=== PATIENT | male | born 1945 | race Caucasian/White ===

== ENCOUNTER 2018-11-19 06:23 | Day surgery (SDC) | payer MEDICARE, OTHER ==
[~2018-11-19 06:23] MED LIST: KETOROLAC TROMETHAMINE 0.45% 4 DROP/0.4 ML DROPERETTE OS PRN
[2018-11-19] MEDS: TROPICAMIDE 1% OPH SOLN 3 ML OS PRN ×3 (06:47→07:08)
[2018-11-19] MEDS: CYCLOPENTOLATE 0.2%/PHENYLEPHRINE 1% OPH SOLN 2 ML OS PRN ×3 (06:47→07:08)
[2018-11-19] MEDS: BESIFLOXACIN HCL 0.6% OPH SUSP 5 ML BOTTLE OS PRN ×4 (06:47→07:48)
[2018-11-19] MEDS: TETRACAINE HCL 0.5% OPH SOLN 4 ML OS PRN ×4 (06:48→07:30)
[2018-11-19] MEDS ORDERED: MIDAZOLAM 2 MG/2 ML INJ ONE (07:17)
[2018-11-19] MEDS: EPINEPHRINE INJ/PF 1 MG/1 ML AMPULE ONE ×2 (07:39)
[2018-11-19] MEDS: LIDOCAINE 1%/PHENYLEPHRINE 1.5% 1 ML VIAL ONE ×2 (07:39)
[2018-11-19] MEDS: CHONDR SU A NA/HYALUR INTRAOC KIT (SURGICARE) ONE ×2 (07:39)
[2018-11-19] MEDS: DORZOLAMIDE HCL 2%/TIMOLOL MALEAT 0.5% OPH SOLN 10 ML OS PRN ×2 (07:48)
--- NOTE | 2018-11-19 19:35 | [facility] OPERATIVE REPORT E ---
[facility] Operative Report NAME: MICHAEL LEAL AGE: 73Y DATE OF SURGERY: 11/19/2018 ROOM: PREOPERATIVE DIAGNOSIS: CATARACT, LEFT EYE. POSTOPERATIVE DIAGNOSIS: CATARACT, LEFT EYE. OPERATION: Cataract extraction with insertion of an IOL of the left eye. SURGEON: ALEJANDRO MAYEN M.D. ANESTHESIA: Topical. PROCEDURE: After obtaining appropriate consent, the patient's left eye was prepped and draped in sterile fashion as well as the surgeon in a sterile manner and cataract surgery was started. First a paracentesis blade was used to make a side-port incision. Viscoelastic was used to inflate the anterior chamber. Next a 2.4 mm incision was made with a 2.4 mm blade, clear corneal temporally. A continuous capsulorrhexis was made using a cystotome and Utrata forceps. Following this hydrodissection was carried out to make the lens fully loose and mobile and it was rotated 90 degrees. Following this, a tubtga-rog-wxomqoq technique was used to phacoemulsify the lens with a CDE of 4.35. The remaining cortex was removed with irrigation/aspiration. Provisc was instilled into the capsular bag to inflate the bag. A SN60WF, 17.0 diopter lens was placed. The remaining viscoelastic material was removed with irrigation/aspiration. Following this, the incision was found to be watertight. Besivance was instilled into the eye and a protective shield was placed over the eye. The patient returned to the postoperative recovery in stable condition. DICTATING PHYSICIAN: ALEJANDRO MAYEN M.D. [id number] PHY#: [id number] ID: [id number] JOB#: [id number] ACCT: [id number] cc:ALEJANDRO MAYEN M.D. >
--- NOTE | 2018-11-19 19:40 | [facility] DISCHARGE SUMMARY E ---
[facility] Discharge Summary NAME: MICHAEL LEAL AGE: 73Y ADMITTED: 11/19/2018 DISCHARGED: This is a 73-year-old male who underwent cataract extraction of the left eye. DIAGNOSIS: CATARACT LEFT EYE. He underwent surgery because he was having difficulty driving at night secondary to glare from headlights. He should be on a regular diet. No bending at the waist and no heavy lifting. He should use his Besivance, Ilevro, and Pred Forte at 3:00 p.m. and 8:00 p.m. and sleep with a rigid shield. I will see him for his 1-day postop tomorrow. DICTATING PHYSICIAN: ALEJANDRO MAYEN M.D. [id number] PHY#: [id number] ID: [id number] JOB#: [id number] ACCT: [id number] cc:ALEJANDRO MAYEN M.D. >
== END 2018-11-19 08:25 | disposition home or self-care (01) ==
LOC: SC 06:23
PROVIDERS: ATTEND Internal Medicine
DX: H25.13 Age-related nuclear cataract, bilateral (principal); H33.321 Round hole, right eye; I10 Essential (primary) hypertension; E78.00 Pure hypercholesterolemia, unspecified; M06.9 Rheumatoid arthritis, unspecified; N40.0 Benign prostatic hyperplasia without lower urinary tract symptoms; R01.1 Cardiac murmur, unspecified; Z87.891 Personal history of nicotine dependence; Z79.01 Long term (current) use of anticoagulants
CPT/HCPCS: 66984; 00142; V2632; J2250; J3490 ×2; A9270; J0171; J2370; 142

== ENCOUNTER 2018-12-10 08:53 | Day surgery (SDC) | payer MEDICARE, OTHER ==
[~2018-12-10 08:53] MED LIST changes: +KETOROLAC TROMETHAMINE 0.45% 4 DROP/0.4 ML DROPERETTE OD PRN; -KETOROLAC TROMETHAMINE 0.45% 4 DROP/0.4 ML DROPERETTE OS PRN
[2018-12-10] MEDS: TROPICAMIDE 1% OPH SOLN 3 ML OD PRN ×3 (09:20→09:49)
[2018-12-10] MEDS: CYCLOPENTOLATE 0.2%/PHENYLEPHRINE 1% OPH SOLN 2 ML OD PRN ×3 (09:20→09:49)
[2018-12-10] MEDS: BESIFLOXACIN HCL 0.6% OPH SUSP 5 ML BOTTLE OD PRN ×4 (09:21→10:18)
[2018-12-10] MEDS: TETRACAINE HCL 0.5% OPH SOLN 4 ML OD PRN ×3 (09:22→09:55)
[2018-12-10] MEDS: LIDOCAINE 1%/PHENYLEPHRINE 1.5% 1 ML VIAL ONE ×2 (10:08)
[2018-12-10] MEDS: EPINEPHRINE INJ/PF 1 MG/1 ML AMPULE ONE ×2 (10:08)
[2018-12-10] MEDS: CHONDR SU A NA/HYALUR INTRAOC KIT (SURGICARE) ONE ×2 (10:08)
[2018-12-10] MEDS: DORZOLAMIDE HCL 2%/TIMOLOL MALEAT 0.5% OPH SOLN 10 ML OD PRN ×2 (10:18)
[2018-12-10] MEDS ORDERED: MIDAZOLAM 2 MG/2 ML INJ ONE (10:42)
--- NOTE | 2018-12-10 17:35 | [facility] DISCHARGE SUMMARY E ---
[facility] Discharge Summary NAME: MICHAEL LEAL AGE: 73Y ADMITTED: 12/10/2018 DISCHARGED: 12/10/2018 HOSPITAL COURSE: This is a 73-year-old patient who underwent cataract extraction of the right eye. DIAGNOSIS: CATARACT, RIGHT EYE. He underwent surgery because he was having difficulty seeing road signs. DISCHARGE INSTRUCTIONS: He should be on a regular diet. No bending at his waist, no heavy lifting. He should use his Besivance, Ilevro, and Predforte at 3 p.m. and 8 p.m. and sleep with a rigid shield. I will see him for his 1 day postoperative tomorrow. DICTATING PHYSICIAN: ALEJANDRO MAYEN M.D. [id number] PHY#: [id number] ID: [id number] JOB#: [id number] ACCT: [id number] cc:ALEJANDRO MAYEN M.D. >
--- NOTE | 2018-12-10 17:35 | [facility] OPERATIVE REPORT E ---
[facility] Operative Report NAME: MICHAEL LEAL AGE: 73Y DATE OF SURGERY: 12/10/2018 ROOM: PREOPERATIVE DIAGNOSIS: CATARACT, RIGHT EYE. POSTOPERATIVE DIAGNOSIS: CATARACT, RIGHT EYE. OPERATION: Cataract extraction with insertion of an IOL of the right eye. SURGEON: ALEJANDRO MAYEN M.D. ANESTHESIA: Topical. PROCEDURE: After obtaining appropriate consent, the patient's right eye was prepped and draped in sterile fashion as well as the surgeon in a sterile manner and cataract surgery was started. First a paracentesis blade was used to make a side-port incision. Viscoelastic was used to inflate the anterior chamber. Next a 2.4 mm incision was made with a 2.4 mm blade, clear corneal temporally. A continuous capsulorrhexis was made using a cystotome and Utrata forceps. Following this hydrodissection was carried out to make the lens fully loose and mobile and it was rotated 90 degrees. Following this, a aihbsf-kzr-wjlsgba technique was used to phacoemulsify the lens with a CDE of 5.86. The remaining cortex was removed with irrigation/aspiration. Provisc was instilled into the capsular bag to inflate the bag. A SN60WF, 17.0 diopter lens was placed. The remaining viscoelastic material was removed with irrigation/aspiration. Following this, the incision was found to be watertight. Besivance was instilled into the eye and a protective shield was placed over the eye. The patient returned to the postoperative recovery in stable condition. DICTATING PHYSICIAN: ALEJANDRO MAYEN M.D. [id number] PHY#: [id number] ID: [id number] JOB#: [id number] ACCT: [id number] cc:ALEJANDRO MAYEN M.D. >
== END 2018-12-10 10:52 | disposition home or self-care (01) ==
LOC: SC 08:53
PROVIDERS: ATTEND Internal Medicine
DX: H25.11 Age-related nuclear cataract, right eye (principal); Z96.1 Presence of intraocular lens; I10 Essential (primary) hypertension; K21.9 Gastro-esophageal reflux disease without esophagitis; G47.30 Sleep apnea, unspecified; R01.1 Cardiac murmur, unspecified; Z79.899 Other long term (current) drug therapy
CPT/HCPCS: 66984; V2632; J2250; J3490 ×2; A9270; J0171; J2370; 142

== ENCOUNTER 2019-04-05 15:34 | Observation (INO) | payer MEDICARE, OTHER ==
[2019-04-05] MEDS ORDERED: NORMAL SALINE 1000 ML 1,000 ML IV PRN (16:02)
[2019-04-05] MEDS ORDERED: RINGERS SOLUTION,LACTATED 1,000 ML IV PRN (16:12)
[2019-04-05 17:15] LABS: ABSOLUTE BASOPHILS # (AUTO) 0.1 10^3/uL (0.0-0.2); ABSOLUTE EOSINOPHILS # (AUTO) 0.2 10^3/uL (0.0-0.6); ABSOLUTE LYMPHOCYTES (AUTO) 1.2 10^3/uL (0.5-4.7); ABSOLUTE MONOCYTES (AUTO) 0.8 10^3/uL (0.1-1.4); ABSOLUTE NEUT (AUTO) 7.6 10^3/uL (1.7-8.2); BASOPHILS % (AUTO) 1.3 % (0-2); EOSINOPHILS % (AUTO) 1.5 % (0-6); HEMATOCRIT 35.6 % (37.9-51.0); HEMOGLOBIN 12.9 g/dL (13.5-17.0); LYMPHOCYTES % (AUTO) 11.9 % (13-45); MEAN CORPUSCULAR HEMOGLOBIN 30.6 pg (27.0-33.4); MEAN CORPUSCULAR HGB CONC 36.2 g/dL (32.0-36.0); MEAN CORPUSCULAR VOLUME 85 fl (80-97); MONOCYTES % (AUTO) 8.5 % (3-13); PLATELET COUNT 231 10^3/uL (150-450); RED CELL DISTRIBUTION WIDTH 12.3 % (11.5-14.0); SEGMENTED NEUTROPHILS % (AUTO) 76.8 % (42-78); TOTAL CELLS COUNTED % (AUTO) 100 %
[2019-04-05 17:31] LABS: ALBUMIN 3.8 g/dL (3.5-5.0); ALKALINE PHOSPHATASE 64 U/L (38-126); ANION GAP 6 (5-19); ASPARTATE AMINO TRANSFERASE 21 U/L (17-59); BILIRUBIN,DIRECT 0.2 mg/dL (0.0-0.4); BILIRUBIN,TOTAL 0.6 mg/dL (0.2-1.3); BLOOD UREA NITROGEN 11 mg/dL (7-20); CALCIUM 9.2 mg/dL (8.4-10.2); CARBON DIOXIDE 34 mmol/L (22-30); CHLORIDE 101 mmol/L (98-107); GLUCOSE 119 mg/dL (75-110); POTASSIUM 3.8 mmol/L (3.6-5.0); TOTAL PROTEIN 6.5 g/dL (6.3-8.2)
--- NOTE | 2019-04-05 18:17 | Operative Report ---
Operative Report DATE OF SURGERY: 04/05/19 PREOPERATIVE DIAGNOSIS: Cellulitis left arm rule out abscess POSTOPERATIVE DIAGNOSIS: Same with abscess left arm OPERATION: Focused ultrasound of the left arm SURGEON: KALIA DANIELS TISSUE REMOVED OR ALTERED: None ESTIMATED BLOOD LOSS: None INTRAOPERATIVE FINDINGS: See below PROCEDURE: Patient's left arm was exposed at bedside on the fourth floor. Acuson gel was placed on the left arm. There is a site of maximum elevation, and punctate tenderness over the left elbow dorsal aspect. This area scan with a variable frequency linear transducer. Findings were significant for a moderate to large hypoechoic saucer-shaped area, with internal echoes, and fluid movement all consistent with abscess. Impression: Left arm abscess Recommendations: 1. Patient needs I&D in the operating room. This will be done tonight. We will be keeping him n.p.o. The risk, benefits and alternatives of the planned procedure were explained to the patient. He expresses understanding and agrees to proceed. 2. We will keep patient on intravenous antibiotics
[2019-04-05] MEDS: CEFAZOLIN SODIUM 1 GM in DEXTROSE 5%-WATER 50 ML IV SCH (19:35)
[2019-04-05] MEDS ORDERED: DEXAMETHASONE SOD PHOSPHATE INJ 4 MG/1 ML VIAL ONE (20:29)
[2019-04-05] MEDS ORDERED: LIDOCAINE 2% INJ-PF (20 MG/ML) 10 ML AMPUL ONE (20:29)
[2019-04-05] MEDS ORDERED: MIDAZOLAM 2 MG/2 ML INJ ONE (20:29)
[2019-04-05] MEDS ORDERED: FENTANYL CITRATE INJ/PF 100 MCG/2 ML AMPUL ONE (20:29)
[2019-04-05] MEDS ORDERED: ONDANSETRON HCL INJ/PF 4 MG/2 ML SDV ONE (20:29)
[2019-04-05] MEDS ORDERED: PROPOFOL INJ 200 MG/20 ML VIAL IV ONE (20:30)
[2019-04-05] MEDS ORDERED: LIDOCAINE 0.5% INJ-PF (5 MG/ML) 50 ML SDV ONE (20:47)
[2019-04-05] MEDS ORDERED: ONDANSETRON HCL INJ/PF 4 MG/2 ML SDV IV PRN (21:10)
[2019-04-05] MEDS ORDERED: DIPHENHYDRAMINE HCL 50 MG/ML VIAL IV PRN (21:10)
[2019-04-05] MEDS ORDERED: MEPERIDINE HCL/PF INJ 25 MG/1 ML DISP.SYRIN IV PRN (21:10)
[2019-04-05] MEDS ORDERED: PROMETHAZINE HCL INJ 25 MG/1 ML VIAL IV PRN ×2 (21:10)
[2019-04-05] MEDS ORDERED: FENTANYL CITRATE INJ/PF 100 MCG/2 ML AMPUL IV PRN ×2 (21:10)
[2019-04-05] MEDS ORDERED: KETOROLAC TROMETHAMINE 10 MG TABLET PO PRN (21:12)
--- NOTE | 2019-04-05 21:12 | Operative Report ---
Operative Report DATE OF SURGERY: 04/05/19 PREOPERATIVE DIAGNOSIS: Abscess left arm POSTOPERATIVE DIAGNOSIS: Same confined to the subcutaneous space OPERATION: Excisional debridement of skin, subcutaneous tissue and pus from left forearm SURGEON: KALIA DANIELS ANESTHESIA: GA TISSUE REMOVED OR ALTERED: Puss, skin, subcutaneous tissue COMPLICATIONS: None ESTIMATED BLOOD LOSS: Scant INTRAOPERATIVE FINDINGS: See below PROCEDURE: The patient was taken to the preop holding her to the main operating room where LMA general anesthesia was induced. Left arm was isolated, prepped and draped sterile fashion Surgical plan surgical timeout were conducted. The left forearm was exposed. Just distal to the left elbow was the point of maximum elevation, and pointing of the abscess. A 3 cm longitudinal incision was made over this area and approximately 20 cc of pus was evacuated. We then excised an ellipse of skin in a circumferential fashion approximately 3 cm diameter. Now using suction, and index finger, subcutaneous loculations were broken up in a circumferential fashion extending approximately 6 to 8 cm under the skin externally distally medially and laterally. All loculations were broken up. Specimen was sent for Gram stain, culture and sensitivity. With 1/2 L of saline, then packed with packing, 1 strip intact. 4 x 4's and Kerlix applied. Patient tolerated procedure well, extubated, and taken recovery in stable condition.
[2019-04-05] MEDS ORDERED: GLYCOPYRROLATE INJ 0.4 MG/2 ML VIAL ONE (21:22)
[2019-04-05] MEDS ORDERED: CEFAZOLIN SODIUM 1 GM in DEXTROSE 5%-WATER 50 ML IV SCH (22:00)
--- NOTE | 2019-04-05 22:29 | EKG REPORT ---
SEVERITY:- NORMAL ECG - SINUS RHYTHM : Confirmed by: Marian Anderson MD 05-Apr-2019 22:29:12
--- NOTE | 2019-04-05 22:29 | EKG REPORT ---
SEVERITY:- BORDERLINE ECG - SINUS RHYTHM LVH BY VOLTAGE : Confirmed by: Marian Anderson MD 05-Apr-2019 22:29:08
[2019-04-05] MEDS: KETOROLAC TROMETHAMINE INJ/PF 30 MG/1 ML SDV IV PRN (23:45)
[2019-04-06] MEDS: CEFAZOLIN SODIUM 1 GM in DEXTROSE 5%-WATER 50 ML IV SCH ×3 (01:18→17:58)
[2019-04-06] MEDS: KETOROLAC TROMETHAMINE INJ/PF 30 MG/1 ML SDV IV PRN (08:36)
[2019-04-06] MEDS ORDERED: ALPRAZOLAM 0.5 MG TABLET PO PRN (09:15)
--- NOTE | 2019-04-06 09:15 | PDOC PROGRESS REPORT ---
Subjective Progress Note for:: 04/06/19 Subjective:: Feels well. Reason For Visit: LEFT ARM ABSCESS Physical Exam Vital Signs: Temp Pulse Resp BP Pulse Ox 97.9 F 58 L 17 153/50 H 93 04/06/19 08:05 04/06/19 08:05 04/06/19 08:05 04/06/19 08:05 04/06/19 08:05 Intake & Output 04/05/19 04/06/19 04/07/19 06:59 06:59 06:59 Intake Total 1902 Output Total 1765 Balance 137 Weight 75.5 kg General appearance: PRESENT: no acute distress Respiratory exam: PRESENT: clear to auscultation maulik Cardiovascular exam: PRESENT: RRR Extremities exam: PRESENT: other - Arm wound appears clean. Packing removed. No purulent drainage. Some surrounding erythema and induration. Results Laboratory Results: 04/05/19 16:59 04/05/19 16:59 04/05/19 04/05/19 16:59 16:59 WBC 10.0 RBC 4.20 L Hgb 12.9 L Hct 35.6 L MCV 85 MCH 30.6 MCHC 36.2 H RDW 12.3 Plt Count 231 Seg Neutrophils % 76.8 Sodium 141.2 Potassium 3.8 Chloride 101 Carbon Dioxide 34 H Anion Gap 6 BUN 11 Creatinine 0.86 Est GFR ( Amer) > 60 Glucose 119 H Calcium 9.2 Total Bilirubin 0.6 AST 21 Alkaline Phosphatase 64 Total Protein 6.5 Albumin 3.8 Assessment & Plan - Diagnosis (1) Abscess of left arm Is this a current diagnosis for this admission?: Yes Plan: Status post debridement. Wound looks good. Still has some erythema and induration. Continue IV antibiotics. Likely discharge patient home on p.o. antibiotics tomorrow. Start normal saline wet-to-dry dressings in the meantime. - Time Time Spent with patient: Less than 15 minutes
[2019-04-06] MEDS: DOCUSATE SODIUM 100 MG CAPSULE PO SCH ×2 (09:20→17:59)
[2019-04-06] MEDS ORDERED: MELOXICAM 7.5 MG TABLET PO SCH (10:00)
[2019-04-06] MEDS ORDERED: (PENDING PHARMACY ID) (Mirabegron [Myrbetriq] 50 MG) PO SCH (10:00)
[2019-04-06] MEDS ORDERED: PRAMIPEXOLE DI-HCL 0.25 MG TABLET PO SCH (10:00)
[2019-04-06] MEDS ORDERED: MELOXICAM 15 MG TABLET PO SCH (10:00)
[2019-04-06] MEDS ORDERED: PREDNISONE 7 MG PO SCH (10:00)
[2019-04-06] MEDS ORDERED: (PENDING PHARMACY ID) (Telmisartan/Hydrochlorothiazid [Micardis Hct 80-25 Mg Tablet] 1 EAC PO SCH (10:00)
[2019-04-06] MEDS: PANTOPRAZOLE SODIUM 40 MG TABLET.DR PO SCH ×2 (11:14→17:59)
[2019-04-06] MEDS: LOSARTAN POTASSIUM 50 MG TABLET PO SCH (11:14)
[2019-04-06] MEDS: HYDROCHLOROTHIAZIDE 25 MG TABLET PO SCH (11:15)
[2019-04-06] MEDS: MULTIVITAMIN TABLET PO SCH (11:15)
[2019-04-06] MEDS: ASPIRIN 81 MG TABLET, ENT COATED PO SCH (11:15)
[2019-04-06] MEDS: PREDNISONE 5 MG TABLET PO SCH (11:17)
[2019-04-06] MEDS: PRAMIPEXOLE DI-HCL 0.5 MG TABLET PO SCH (11:19)
[2019-04-06] MEDS ORDERED: TRAMADOL HCL 50 MG TABLET PO SCH (14:00)
[2019-04-06] MEDS: TAMSULOSIN HCL 0.4 MG CAP.SR.24H PO SCH (18:00)
[2019-04-06] MEDS ORDERED: CEFAZOLIN SODIUM 1 GM in DEXTROSE 5%-WATER 50 ML IV SCH (20:00)
[2019-04-06] MEDS: TRAMADOL HCL 50 MG TABLET PO SCH (20:17)
[2019-04-06] MEDS ORDERED: AMLODIPINE BESYLATE PO SCH (22:00)
[2019-04-06] MEDS ORDERED: AMLODIPINE BESYLATE 10 MG TABLET PO SCH (22:00)
[2019-04-06] MEDS ORDERED: BENAZEPRIL PO SCH (22:00)
[2019-04-06] MEDS ORDERED: (PENDING PHARMACY ID) (Calcium Carbonate/Vitamin D3 [Oyster Shell 500-Vit D3 200 Tb] 1 TAB PO SCH (22:00)
[2019-04-06] MEDS ORDERED: BENAZEPRIL HCL 20 MG TABLET PO SCH (22:00)
[2019-04-06] MEDS ORDERED: SIMVASTATIN 40 MG TABLET PO SCH (22:00)
[2019-04-06] MEDS ORDERED: CALCIUM CARBONATE 250 MG/VITAMIN D3 125 UNIT TABLET PO SCH (22:00)
[2019-04-07] MEDS: CEFAZOLIN SODIUM 1 GM in DEXTROSE 5%-WATER 50 ML IV SCH ×2 (03:19→11:10)
[2019-04-07] MEDS: TRAMADOL HCL 50 MG TABLET PO SCH ×2 (08:11→14:19)
--- NOTE | 2019-04-07 10:31 | PDOC DISCHARGE SUMMARY ---
General - Admit/Disc Date/PCP Admission Date/Primary Care Provider: 04/05/19 15:34 Discharge Date: 04/07/19 - Discharge Diagnosis Final Diagnosis: Left upper extremity abscess - Assessment Summary: Is a 73-year-old male admitted to hospital with a large abscess to the left upper extremity. The patient was taken to the operating room where incision and drainage with debridement was performed. The patient did well from this. Damp to dry dressing changes were initiated. The patient began to feel much better. His pain had resolved. He did not have any fevers. By postoperative day #2, it was felt that the patient had reached maximal hospital benefit and was fit for discharge. - Additional Information Resuscitation Status: Full Code Discharge Diet: As Tolerated Discharge Activity: Balance Activity w/Rest Referrals: [facility] [Provider Group] - 04/15/19 1:15 pm Home Medications: Aspirin [Aspir-Low] 81 mg PO DAILY 11/18/18 Ibandronate Sodium [Boniva] 150 mg PO .Friday11/18/18 Meloxicam [Mobic] 15 mg PO DAILY 11/18/18 Mirabegron [Myrbetriq] 50 mg PO DAILY 11/18/18 Omeprazole Magnesium [Prilosec Otc] 20 mg PO DAILY 11/18/18 Pramipexole Di-HCl [Mirapex 0.25 Mg Tablet] 0.5 mg PO DAILY 11/18/18 Prednisone 7.5 mg PO DAILY 11/18/18 Simvastatin [Zocor 20 mg Tablet] 20 mg PO QHS 11/18/18 Tamsulosin HCl [Flomax 0.4 mg Cap.sr] 0.4 mg PO DAILY 11/18/18 Telmisartan/Hydrochlorothiazid [Micardis HCT 80-25 mg Tablet] 1 each PO DAILY 11/18/18 Alprazolam [Xanax 0.5 mg Tablet] 0.5 mg PO HSP PRN 04/05/19 Amlodipine Besylate/Benazepril [Lotrel 10-20 mg Capsule] 1 cap PO QHS 04/05/19 Calcium Carbonate/Vitamin D3 [Oyster Shell 500-Vit D3 200 Tb] 1 tab PO QHS 04/05/19 Multivitamin [Tab-A-Isabelle (Multiple Vitamin) Tablet] 1 tab PO DAILY 04/05/19 Pantoprazole Sodium 40 mg PO BID 04/05/19 Tramadol HCl [Ultram 50 mg Tablet] 100 mg PO Q8 04/05/19 Additional Information: Discharge home. Diet as tolerated. Activity: Nonstrenuous. Follow-up with [place] [facility] in 7 to 10 days. Bactrim DS 2 tabs p.o. twice daily x7 days. Damp to dry dressing changes twice daily. History of Present Illiness History of Present Illness: MICHAEL LEAL is a 73 year old male Physical Exam Vital Signs: Temp Pulse Resp BP Pulse Ox 98.4 F 47 L 14 159/66 H 95 04/07/19 07:00 04/07/19 07:00 04/07/19 07:00 04/07/19 07:00 04/07/19 07:00 Intake & Output 04/06/19 04/07/19 04/08/19 06:59 06:59 06:59 Intake Total 1902 2680 Output Total 1765 Balance 137 2680 Weight 75.5 kg 77.2 kg Results Laboratory Results: WBC 10.0 10^3/uL (4.0-10.5) 04/05/19 16:59 RBC 4.20 10^6/uL (4.35-5.55) L 04/05/19 16:59 Hgb 12.9 g/dL (13.5-17.0) L 04/05/19 16:59 Hct 35.6 % (37.9-51.0) L 04/05/19 16:59 MCV 85 fl (80-97) 04/05/19 16:59 MCH 30.6 pg (27.0-33.4) 04/05/19 16:59 MCHC 36.2 g/dL (32.0-36.0) H 04/05/19 16:59 RDW 12.3 % (11.5-14.0) 04/05/19 16:59 Plt Count 231 10^3/uL (150-450) 04/05/19 16:59 Lymph % (Auto) 11.9 % (13-45) L 04/05/19 16:59 [place] % (Auto) 8.5 % (3-13) 04/05/19 16:59 Eos % (Auto) 1.5 % (0-6) 04/05/19 16:59 Baso % (Auto) 1.3 % (0-2) 04/05/19 16:59 Absolute Neuts (auto) 7.6 10^3/uL (1.7-8.2) 04/05/19 16:59 Absolute Lymphs (auto) 1.2 10^3/uL (0.5-4.7) 04/05/19 16:59 Absolute Monos (auto) 0.8 10^3/uL (0.1-1.4) 04/05/19 16:59 Absolute Eos (auto) 0.2 10^3/uL (0.0-0.6) 04/05/19 16:59 Absolute Basos (auto) 0.1 10^3/uL (0.0-0.2) 04/05/19 16:59 Seg Neutrophils % 76.8 % (42-78) 04/05/19 16:59 Sodium 141.2 mmol/L (137-145) 04/05/19 16:59 Potassium 3.8 mmol/L (3.6-5.0) 04/05/19 16:59 Chloride 101 mmol/L (98-107) 04/05/19 16:59 Carbon Dioxide 34 mmol/L (22-30) H 04/05/19 16:59 Anion Gap 6 (5-19) 04/05/19 16:59 BUN 11 mg/dL (7-20) 04/05/19 16:59 Creatinine 0.86 mg/dL (0.52-1.25) 04/05/19 16:59 Est GFR ( Amer) > 60 (>60) 04/05/19 16:59 Est GFR (MDRD) Non-Af > 60 (>60) 04/05/19 16:59 Glucose 119 mg/dL (75-110) H 04/05/19 16:59 Calcium 9.2 mg/dL (8.4-10.2) 04/05/19 16:59 Total Bilirubin 0.6 mg/dL (0.2-1.3) 04/05/19 16:59 Direct Bilirubin 0.2 mg/dL (0.0-0.4) 04/05/19 16:59 Neonat Total Bilirubin Not Reportable 04/05/19 16:59 Neonat Direct Bilirubin Not Reportable 04/05/19 16:59 Neonat Indirect Bili Not Reportable 04/05/19 16:59 AST 21 U/L (17-59) 04/05/19 16:59 ALT 19 U/L (<50) 04/05/19 16:59 Alkaline Phosphatase 64 U/L (38-126) 04/05/19 16:59 Total Protein 6.5 g/dL (6.3-8.2) 04/05/19 16:59 Albumin 3.8 g/dL (3.5-5.0) 04/05/19 16:59
[2019-04-07] MEDS: PREDNISONE 5 MG TABLET PO SCH (11:04)
[2019-04-07] MEDS: LOSARTAN POTASSIUM 50 MG TABLET PO SCH (11:05)
[2019-04-07] MEDS: TAMSULOSIN HCL 0.4 MG CAP.SR.24H PO SCH (11:06)
[2019-04-07] MEDS: DOCUSATE SODIUM 100 MG CAPSULE PO SCH (11:06)
[2019-04-07] MEDS: ASPIRIN 81 MG TABLET, ENT COATED PO SCH (11:07)
[2019-04-07] MEDS: PRAMIPEXOLE DI-HCL 0.5 MG TABLET PO SCH (11:07)
[2019-04-07] MEDS: HYDROCHLOROTHIAZIDE 25 MG TABLET PO SCH (11:07)
[2019-04-07] MEDS: MULTIVITAMIN TABLET PO SCH (11:08)
[2019-04-07] MEDS: PANTOPRAZOLE SODIUM 40 MG TABLET.DR PO SCH (11:08)
[2019-04-07 14:40] VITALS: BP 145/56
== END 2019-04-07 15:11 | disposition home or self-care (01) ==
LOC: 4S 15:34
PROVIDERS: ADMIT Surgery; ATTEND Surgery
DX: L02.414 Cutaneous abscess of left upper limb (principal); I10 Essential (primary) hypertension; M19.90 Unspecified osteoarthritis, unspecified site; R39.15 Urgency of urination; Z79.82 Long term (current) use of aspirin; Z79.899 Other long term (current) drug therapy; Z91.041 Radiographic dye allergy status
CPT/HCPCS: 36415; 87070; 87205; 85025; 87075; 87077; 80053; 87186; 93010; 93005; 01710; 11042; 76882; G0378 ×3; G0379; J2250; A9270 ×24; J0690 ×3; J1100; J3010; J3490 ×2; J1885 ×2; J2405; J7060 ×3; J7120; J2704; 1710; J7512